=== PATIENT | male | born 1955 | race Caucasian/White ===

== ENCOUNTER → 2023-01-06 10:53 | Outpatient (CLI) | payer MEDICARE, SELFPAY ==
--- NOTE | 2023-01-06 11:16 | XR_ITS ---
FINAL REPORT CLINICAL HISTORY: HEMATURIA COMPARISON: None FINDINGS: SINGLE VIEW ABDOMEN A single view of the abdomen was obtained. There is a nonobstructive bowel gas pattern with a moderate stool burden.. There are no abnormally dilated loops of small bowel. No abnormal calcifications are identified. Lower lumbar degenerative changes present. IMPRESSION: Nonobstructive bowel gas pattern with a moderate stool burden.. Reviewed, Interpreted and Dictated by Duarte Rojas III, MD Transcribed by Fely Garcia Authenticated and [facility]
== END ==
LOC: LAB 10:57 → RAD 10:58
PROVIDERS: PCP Nurse Practitioner Family; Visit Provider Nurse Practitioner Family
DX: R31.9 Hematuria, unspecified (principal)
CPT/HCPCS: 74018

== ENCOUNTER 2023-07-23 10:21 | Outpatient (CLI) | payer MEDICARE, SELFPAY ==
[2023-07-23 17:22] LABS: Hemoglobin A1C 7.3 % (4.0-6.0)
== END 2023-07-23 23:59 | disposition home or self-care (01) ==
LOC: LAB.DROPOF 07-24 10:21
PROVIDERS: PCP Family Medicine; Visit Provider Family Medicine
DX: E11.9 Type 2 diabetes mellitus without complications (principal); Z79.84 Long term (current) use of oral hypoglycemic drugs
CPT/HCPCS: 83036

== ENCOUNTER 2024-05-13 11:05 | Outpatient (CLI) | payer MEDICARE, SELFPAY ==
[2024-05-13 18:00] LABS: Basophils % 0.4 % (0.1-2.0); Eosinophils # 0.1 K/mm3 (0.0-0.4); Eosinophils % 2.4 % (0.1-12.0); Hematocrit 45.4 % (42.0-52.0); Hemoglobin 15.1 g/dL (14.1-18.0); Lymphocytes # 1.7 K/mm3 (0.7-4.5); Lymphocytes % 31.6 % (10-50); Mean Corpuscular HGB Conc 33.3 g/dL (31.8-35.4); Mean Corpuscular Hemoglobin 31.5 pg (27.0-31.2); Mean Corpuscular Volume 94.6 fl (80-94); Mean Platelet Volume 10.1 fl (7.4-10.4); Monocytes # 0.4 K/mm3 (0.1-1.0); Monocytes % 7.3 % (1.7-9.3); Neutrophils # 3.1 K/mm3 (1.8-7.8); Neutrophils % 58.1 % (37.0-80.0); Platelet Count 176 K/mm3 (142-424); White Blood Count 5.3 K/mm3 (4.8-10.8)
[2024-05-13 18:22] LABS: Alanine Aminotransferase 30 U/L (12-78); Albumin Level 5.2 g/dl (3.5-5.0); Albumin/Globulin Ratio 2.3 (1.1-1.8); Alkaline Phosphatase 62 U/L (38-126); Anion Gap 17.9 mEq/L (5-15); Aspartate Amino Transferase 32 U/L (17-59); Blood Urea Nitrogen 19 mg/dl (9-20); Calcium 9.6 mg/dl (8.4-10.2); Carbon Dioxide 21 mmol/L (22.0-30.0); Chloride 103 mmol/L (98-107); Chol/HDL Ratio 2.1 (1-3.5); Cholesterol 125 mg/dl (140-200); Estimated Glomerular Filt Rate 96 ml/min (>60); GFR (African American) 117 ML/MIN (>60); Globulin 2.3 g/dL (1.3-3.2); Glucose 121 mg/dl (74-100); HDL Cholesterol 59 mg/dl (40-60); Potassium 4.9 mmoL/L (3.5-5.1); Sodium 137 mmol/L (136-145); Total Protein,Serum 7.5 g/dl (6.3-8.2); Triglycerides 253 mg/dl (30-150); VLDL Cholesterol 51 mg/dL (0-40)
[2024-05-13 18:34] LABS: Direct LDL Cholesterol < 30.00 mg/dL (100-129)
[2024-05-13 18:53] LABS: Prostate Specific Ag Screen 1.3 ng/ml (0.0-4.0); Thyroid Stimulating Hormone 2.61 uIU/mL (0.465-4.68)
[2024-05-13 19:45] LABS: HIV Combo NEGATIVE (Negative)
[2024-05-13 19:52] LABS: Hepatitis C Ab Qual. W/ RFX NEGATIVE (Negative)
[2024-05-15 09:24] LABS: Testosterone,Total 202 ng/dL (264-916)
== END 2024-05-13 23:59 | disposition home or self-care (01) ==
LOC: LAB.DROPOF 05-14 11:09
PROVIDERS: PCP Family Medicine; Visit Provider Family Medicine
DX: E11.9 Type 2 diabetes mellitus without complications (principal); Z79.84 Long term (current) use of oral hypoglycemic drugs; Z12.5 Encounter for screening for malignant neoplasm of prostate; Z11.59 Encounter for screening for other viral diseases; Z87.891 Personal history of nicotine dependence
CPT/HCPCS: 80053; 80061; 84403; 84443; 85025; 86803; 87389; G0103

== ENCOUNTER 2024-05-31 08:05 | Outpatient (CLI) | payer MEDICARE, SELFPAY ==
[2024-05-31 18:02] LABS: Creatinine,Urine Random 80 mg/dL (Not Estab.); Microalbumin < 6.000 mg/L (0-16.7)
[2024-06-06 19:15] LABS: Testosterone, Total, LC/MS 278.7 ng/dL (264.0-916.0)
== END 2024-05-31 23:59 | disposition home or self-care (01) ==
LOC: LAB.DROPOF 06-01 12:07
PROVIDERS: PCP Family Medicine; Visit Provider Family Medicine
DX: E11.9 Type 2 diabetes mellitus without complications (principal); R79.89 Other specified abnormal findings of blood chemistry; Z11.59 Encounter for screening for other viral diseases; Z12.5 Encounter for screening for malignant neoplasm of prostate
CPT/HCPCS: 82043; 82570; 84402; 84403

== ENCOUNTER 2024-09-21 09:05 | Outpatient (CLI) | payer MEDICARE, SELFPAY ==
[2024-09-21 17:28] LABS: Prostate Specific Ag, Diagnost 2.59 ng/ml (0.0-4.0)
[2024-09-21 19:03] LABS: Hemoglobin A1C 8.4 % (4.0-6.0)
--- OUTSIDE RECORDS SUMMARY | 2024-09-22 10:06 | XMS_ITS | Data Portability ---
Author Organization [place] - [place] [facility] P[facility] Raymond Address [address] [place] [address] Care Team Providers Care Heel Attacher Wood Name Role Phone SABA ULRICH Primary Care Provider Assessment No assessment recorded. Plan of Treatment Reminders Order Date Submit Date Provider Last Modified By Organization Details Last Modified Time Details Appointments PROC 15 2024 10:45A M Maverick Balderrama Jr, MD Not available Not available Not available Lab PSA, serum or plasma 2023 024 [facility] (Laboratory), [address] , [place], [address], 07/01/2023 18:11:35 Referral None recorded . Procedures None recorded . Surgeries None recorded . Imaging None recorded . Medication Orders None recorded . Patient TargetsNo targets recorded. Patient InstructionsNo instructions recorded. Reason for Referral None Reported. Results Created Date Observation Date Name Description Value Unit Range Abnormal Flag Note LastModifiedBy Organization Detail LastModifiedTime 07/27/19 25 07/26/2024 RFS-P ATHOL OGY SPECI MEN REQUE ST pathreq Patho logy [address] [place] [address] Phone or [phone] Fax Mert garza Jr., M.D., Medic al Direc [facility] [address] : [place] [address] Phone Numbe r: [phone] Nicholas shabazz M.D. PATHO LOGY REPOR T Patie nt Name: JAY MARTINEZ Date of : 1955 Age/S ex: 69/M Accou nt Numbe r: [id number] Medic al Recor d Numbe r: [id number] Order ing MD: JAIR BALDERRAMA AM Date Colle cted : 2024 Date Recei nan : 2024 Date Repor heidi : 2024 Exam: Biops y Acces gloria# : [id number] Labor atory #: [id number] Copie s To: [facility] Techn ician : [facility] er cance r, benig n prost atic hyper plasi a BodyS ite PROST ATE, NEEDL E CORE BIOPS Y SubSi te PAPIL JOHN LESIO N Gross Descr iptio n Speci men recei nan in forma reese label ed giselle llary prost ate lesio n and consi sts of no tissu e gross ly ident ified . Speci men is filte red and dyed with eosin in an attem pt to recov er tissu e. Speci men is submi tted in a singl e casse tte. JTM Micro scopi c Descr iptio n Revie w of prepa red slide s confi danita no tissu e, confi rming the gross descr iptio n. Final Diagn osis NO TISSU E IDENT IFIED EJT/[place] [address] Legal ly authe ntica heidi by NICHOLAS FRANKLIN MD 07-26 13:49 :00 Not Available [facility] (Pre-Op Clinic) [address] [place] [address] [place], [address], 07/26/2024 14:11:26 07/01/1907/01/2023 PROST ATE SPECI FIC AG (PSA) prostate specific Ag (PSA) 2.39 NG/mL 0.0-4. 0 Not Available [facility] (Lab Registration) [address] [place] [address] [place], [address], 07/01/2023 18:11:35 07/01/19 24 07/01/2023 PROST ATE SPECI FIC AG (PSA) note Unles s other espinosa noted testi ng perfo rmed at: [facility] [address] [place] [address] [phone] Nicholas shabazz MD CLIA: [id number] Not Available [facility] (Lab Registration) [address] [place], [address], 07/01/2023 18:11:35 07/24/19 24 07/24/2023 BASIC METAB OLIC PANEL sodium 142 mmol/ L 136-14 5 Not Available [facility] (Lab Registration) [address] [place], [address], 07/24/2023 11:49:39 07/24/19 24 07/24/2023 BASIC METAB OLIC PANEL potassium 4.3 mmol/ L 3.5-5. 1 Not Available [facility] (Lab Registration) [address] [place], [address], 07/24/2023 11:49:39 07/24/19 24 07/24/2023 BASIC METAB OLIC PANEL chloride 104 mmol/ L 98-107 Not Available [facility] (Lab Registration) [address] [place], [address], 07/24/2023 11:49:39 07/24/19 24 07/24/2023 BASIC METAB OLIC PANEL carbon dioxide 29 mmol/ L 21-32 Not Available [facility] (Lab Registration) [address] [place], [address], 07/24/2023 11:49:39 07/24/19 24 07/24/2023 BASIC METAB OLIC PANEL anion gap 9.0 Not Available [facility] (Lab Registration) [address] [place], [address], 07/24/2023 11:49:39 07/24/19 24 07/24/2023 BASIC METAB OLIC PANEL glucose 156 mg/dL 70-110 high Not Available [facility] (Lab Registration) [address], [place], [address], 07/24/2023 11:49:39 07/24/19 24 07/24/2023 BASIC METAB OLIC PANEL blood urea nitrogen 18 mg/dL 7-18 Not Available [facility] (Lab Registration) [address], [place], [address], 07/24/2023 11:49:39 07/24/19 24 07/24/2023 BASIC METAB OLIC PANEL creatinine 0.9 mg/dL 0.8-1. 3 Not Available [facility] (Lab Registration) [address], [place], [address], 07/24/2023 11:49:39 07/24/19 24 07/24/2023 BASIC METAB OLIC PANEL BUN/creatini ne ratio 20.0 ratio 9-21 Not Available [facility] (Lab Registration) [address], [place], [address], 07/24/2023 11:49:39 07/24/19 24 07/24/2023 BASIC METAB OLIC PANEL estimated glom filtration rate 89 mL/mi n >60- Not Available [facility] (Lab Registration) [address], [place], [address], 07/24/2023 11:49:39 07/24/19 24 07/24/2023 BASIC METAB OLIC PANEL calcium 9.6 mg/dL 8.5-10 .1 Not Available [facility] (Lab Registration) [address], [place], [address], 07/24/2023 11:49:39 07/24/19 24 07/24/2023 BASIC METAB OLIC PANEL note Unles s other espinosa noted testi ng perfo rmed at: [facility] [address] [place] [address] [phone] Nicholas shabazz MD CLIA: [id number] Not Available [facility] (Lab Registration) [address] [place], [address], 07/24/2023 11:49:39 07/24/19 24 07/24/2023 HEMOG LOBIN A1C glycosylated hemoglobin A1C 7.4 % 4.5-6. 2 high Not Available [facility] (Lab Registration) [address] [place], [address], 07/24/2023 12:14:12 07/24/19 24 07/24/2023 HEMOG LOBIN A1C estimated average glucose 166 mg/dL 82-131 high Not Available [facility] (Lab Registration) [address] [place], [address], 07/24/2023 12:14:12 07/24/19 24 07/24/2023 HEMOG LOBIN A1C note Unles s other espinosa noted testi ng perfo rmed at: [facility] [address] [place] [address] [phone] Nicholas shabazz MD CLIA: [id number] Not Available [facility] (Lab Registration) [address] [place], [address], 07/24/2023 12:14:12 07/21/19 25 07/20/2024 BASIC METAB OLIC PANEL sodium 139 mmol/ L 137-14 7 Not Available [facility] (Pre-Op Clinic) [address] [place] [address] [place], [address], 07/20/2024 17:49:29 07/21/19 25 07/20/2024 BASIC METAB OLIC PANEL potassium 4.0 mmol/ L 3.5-5. 1 Not Available [facility] (Pre-Op Clinic) [address] [place] [address] [place], [address], 07/20/2024 17:49:29 07/21/19 25 07/20/2024 BASIC METAB OLIC PANEL chloride 100 mmol/ L 98-110 Not Available [facility] (Pre-Op Clinic) [address] [facility] [place], [address], 07/20/2024 17:49:29 07/21/19 25 07/20/2024 BASIC METAB OLIC PANEL carbon dioxide 24 mmol/ L 21-30 Not Available [facility] (Pre-Op Clinic) [address] [place] [place], [address], 07/20/2024 17:49:29 07/21/19 25 07/20/2024 BASIC METAB OLIC PANEL anion gap 15 mmol/ L 6-14 high Not Available [facility] (Pre-Op Clinic) [address] [place], [address], 07/20/2024 17:49:29 07/21/19 25 07/20/2024 BASIC METAB OLIC PANEL glucose 108 mg/dL 70-115 Not Available [facility] (Pre-Op Clinic) [address] [place] [address] [place], [address], 07/20/2024 17:49:29 07/21/19 25 07/20/2024 BASIC METAB OLIC PANEL BUN 16 mg/dL 9-20 Not Available [facility] (Pre-Op Clinic) [address] [place] [address] [place], [address], 07/20/2024 17:49:29 07/21/19 25 07/20/2024 BASIC METAB OLIC PANEL creatinine 0.9 mg/dL 0.5-1. 5 Not Available [facility] (Pre-Op Clinic) [address] [place] [address] [place], [address], 07/20/2024 17:49:29 07/21/19 25 07/20/2024 BASIC METAB OLIC PANEL BUN/creatini ne ratio 18 10-20 Not Available [facility] (Pre-Op Clinic) [address] [place] [address] [place], [address], 07/20/2024 17:49:29 07/21/19 25 07/20/2024 BASIC METAB OLIC PANEL glom filtration rate 93 mL/mi n >60- GFR LIMIT ATION : The eGFR equat ion CKD-E PI 2020 is not appli cable for pedia tric patie nts or great er than 90 years of age. The follo wing condi tions may alter the GFR resul t: extre mes in body size, malnu triti on or obesi ty, skele aura muscl e disea se, parap legia or quadr ipleg ia, veget vitaliy diet or rapid ly hernandez ing kiney funct ion. Not Available [facility] (Pre-Op Clinic) [address] [place] [address] [place], [address], 07/20/2024 17:49:29 07/21/19 25 07/20/2024 BASIC METAB OLIC PANEL osmolality (calculated) 291 mosmo l/kg 275-30 1 OSMOL ALITY IS A CALCU LATIO N UTILI ZING THE SERUM /PLAS MA SODIU M, GLUCO SE AND UREA NITRO GEN (BUN) LEVEL S. FOR THE MOST ACCUR ATE RESUL T A MEASU RED SERUM OSMOL ALITY IS SUGGE STED. Not Available [facility] (Pre-Op Clinic) [address] [place] [address] [place], [address], 07/20/2024 17:49:29 07/21/1907/20/2024 BASIC METAB OLIC PANEL calcium 9.8 mg/dL 8.5-10 .8 Not Available [facility] (Pre-Op Clinic) [address] [place] [address] [place], [address], 07/20/2024 17:49:29 07/21/19 25 07/20/2024 BASIC METAB OLIC PANEL note Unles s other espinosa noted testi ng perfo rmed at: [facility] [address] [place] [address] Nicholas shabazz MD Not Available [facility] (Pre-Op Clinic) [address] [place] [address] [place], [address], 07/20/2024 17:49:29 07/22/19 25 07/21/2024 rhyth m strip , EKG* No observ ation record ed. [email or web address] [facility] Records [address] [place] [address] [place], [address], 08/02/2024 14:22:51 Result Notes None recorded. Problems Name Problem SNOMED Code Status Onset Date Resolution Date Notes Provider Name and Address Organization Details Recorded Time Diabetes mellitus 59525700 Active 023 Poppy aj, [place] - [facility] - [place] & [place] 3 10:23:34 Problem Notes None recorded. Procedures Surgical History Date Name Laterality Status Provider Name and Address Organization Details Recorded Time 5 Bladder Irrigation completed Maverick Balderrama Jr, MD [address], [address], [place], [address], [place] [facility] [place] & [place] 07/26/2024 11:21:55 5 Cystoscopy-Male completed Maverick Balderrama Jr, MD [address], [address], [place], [address], [place] [facility] [place] & [place] 07/01/2024 12:32:01 4 Cystoscopy-Male completed Maverick Balderrama Jr, MD [address], [address], [place], [address], [place] [facility] [place] 02/17/2024 12:52:58 4 Cystoscopy-Male completed Maverick Balderrama Jr, MD [address], [address], [place], [address], [place] [facility] [place] 10/23/2023 10:44:56 4 Cystoscopy-Male completed Maverick Balderrama Jr, MD [address], [address], [place], [address], [place] [facility] [place] 07/01/2023 11:36:25 4 Other completed Jeet Sanchez [place] [facility] [place] 07/26/2024 10:13:06 3 Cystoscopy-Male completed Maverick Balderrama Jr, MD [address], [address], [place], [address], [place] [facility] 03/04/2023 15:02:17 Imaging Results None recorded. Procedure Notes None recorded. Medical Equipment None Reported. Allergies No known drug allergies Medications Name Sig Start Date Stop Date Status Note LastModified by Organization Details LastModified Time glipizide ER 2.5 mg tablet, extended release 24 hr active Not Available Not Available Not Available simvastatin 20 mg tablet active Not Available Not Available Not Available cefdinir 300 mg capsule TAKE 1 CAPSULE BY MOUTH TWICE DAILY 10/22 completed Not Available Not Available Not Available Xigduo XR 5 mg-1,000 mg tablet,exten ded release active Not Available Not Available Not Available Vitals Date Recorded Body height Body mass index (BMI) Body weight Body temperature Provider Name and Address Organization Details Last Updated DateTime 07/01/2023 182.88 cm 25.1 kg/m2 02342.59 g 98.1 [degF] Poppy Sanon [facility] 07/01/2023 10:59:54 Date Recorded Body height Body mass index (BMI) Body weight Body temperature Provider Name and Address Organization Details Last Updated DateTime 07/01/2024 182.88 cm 25.1 kg/m2 18797.59 g 98.1 [degF] Jeet [facility] 07/01/2024 11:28:02 Date Recorded Body height Body mass index (BMI) Body weight Body temperature Provider Name and Address Organization Details Last Updated DateTime 07/26/2024 182.88 cm 25.1 kg/m2 18246.59 g 98.1 [degF] Jeet [facility] 07/26/2024 10:12:57 Date Recorded Body height Body mass index (BMI) Body weight Provider Name and Address Organization Details Last Updated DateTime 10/23/2023 182.88 cm 25.1 kg/m2 82275.59 g Stephany James [facility] 10/23/2023 09:06:33 Date Recorded Body height Body mass index (BMI) Body weight Body temperature Provider Name and Address Organization Details Last Updated DateTime 02/17/2024 182.88 cm 25.1 kg/m2 75019.59 g 98.2 [degF] Tefanie Carrillo [facility] & [place] 02/17/2024 09:56:37 Social History Question Answer Notes LastModified by Organizat ion Details LastModified Time Tobacco Smoking Status Former Smoker Jeet aj, [facility] & [place] 07/26/2024 10:13:04 Do You Have An Advance Directive? No Information not available 07/26/2024 Are You Blind Or Do You Have Difficulty Seeing? No Information not available 07/26/2024 What Was The Date Of Your Most Recent Tobacco Screening? 07/23/2024 Information not available 07/26/2024 Are You Passively Exposed To Smoke? No Information not available 07/26/2024 Sex: Male Functional Status Question Answer Note LastModified by Organizat ion Details LastModified Time Do you use any illicit or recreational drugs? No Information not available 07/26/2024 What is your level of alcohol consumption? Moderate Information not available 07/26/2024 What is your exercise level? Moderate Information not available 07/26/2024 Mental Status Question Answer Note LastModified by Organization D etails LastModified Time Do you feel stressed (tense, restless, nervous, or anxious, or unable to sleep at night)? [id number] Information not available 07/26/2024 Family History Nothing Reported Notes:both parents unknown reason Medical History Condition Response Diabetes Y Past Encounters Encounter ID Performer Location Encounter Start Date Encounter Closed Date Diagnosis/Indication Diagnosis SNOMED-CT Code Diagnosis ICD10 Code Diagnosis Note [id number] Maverick Balderrama Jr, MD [facility] [address] [address] 02/20/2023 10:05:51 02/20/2023 11:19:27 Malignant neoplasm of urinary bladder 162732994 C67.9 patient with a 2 cm bladder tumor 5 o'clock position. We discussed the need for TURBT. Raf hematuria 65785938 5 R31.0 patient with a 3 month history of intermitte nt gross hematuria. Cystoscopy today shows a 2 cm tumor noted at the 5 o'clock position. It is papillary in nature. We discussed the findings and TURBT was recommende d. We discussed the operative procedure, complicati ons and postoperat norberto course. He wishes to proceed. We will set this up under general anesthetic at his earliest convenienc e. [id number] Maverick Balderrama Jr, MD [facility] [address] [address] 07/01/2023 10:54:46 07/01/2023 11:31:23 History of malignant neoplasm of bladder 280781532 Z85.51 patient with history of bladder cancer status post TURBT of a 2 cm tumor to 5 o'clock position in the left lateral wall in February. His pathology was noninvasiv e and he returns today in follow-up. Surveillan ce cystoscopy today revealed a small 5 mm papillary recurrence right side of the bladder neck impinging upon the prostate. We discussed the findings and resection of the lesion morgane d. Set this up at his earliest convenienc e. Benign pro static hyperplasia without outflow obstruction 079784624 N40.0 patient with prostate enlargemen t but no significan t symptoms. [id number] [facility]err[facility] [address] [address] 10/23/2023 09:05:23 10/23/2023 09:56:45 History of malignant neoplasm of bladder 840239514 Z85.51 patient with history of bladder cancer status post TURBT of a 2 cm tumor to 5 o'clock position in the left lateral wall in February and a small recurrence in the right side the bladder neck in June. He underwent resection in July and returns today for surveillan ce cystoscopy . Today's cystoscopy is within normal limits and patient reassured. We will see him back in 4 months with surveillan ce cystoscopy . Benign pro static hyperplasia without outflow obstruction 417039950 N40.0 patient with prostate enlargemen t but no significan t symptoms. Screening for malignant neoplasm of prostate 918911180 Z12.5 patient's PSA was 2.10 June 2023 and he was reassured that it was within normal limits. [id number] Maverick Balderrama Jr, MD [facility] [address] [address] 02/17/2024 09:47:26 02/17/2024 10:35:39 History of malignant neoplasm of bladder 948075803 Z85.51 patient with history of bladder cancer status post TURBT of a 2 cm tumor to 5 o'clock position in the left lateral wall in February and a small recurrence in the right side the bladder neck in June. He underwent resection in July and returns today for surveillan ce cystoscopy . Today's cystoscopy is within normal limits and patient reassured. We will see him back in 4 months with surveillan ce cystoscopy . Benign pro static hyperplasia without outflow obstruction 699586404 N40.0 patient with prostate enlargemen t but no significan t symptoms. Screening for malignant neoplasm of prostate 330630007 Z12.5 patient's PSA was 2.10 June 2023 and he was reassured that it was within normal limits. [id number] Maverick Balderrama Jr, MD [facility] [address] [address] 07/01/2024 11:07:47 07/01/2024 11:43:54 History of malignant neoplasm 197085259 Z85.51 patient with history of bladder cancer status post TURBT of a 2 cm tumor to 5 o'clock position in the left lateral wall in February 2023 and a small recurrence in the right side the bladder neck in June 2023. He underwent resection in July and returns today for surveillan ce cystoscopy . Cystoscopy today showed no evidence of bladder tumors but there was a papillary lesion in the distal aspect of the prostatic urethra. We discussed the findings and we will set him up for resection lesion. Benign pro static hyperplasia without outflow obstruction 663118710 N40.0 patient with prostate enlargemen t but no significan t symptoms. Screening for malignant neoplasm of prostate 250962588 Z12.5 patient's PSA was 2.10 June 2023 and he was reassured that it was within normal limits. Patient is due for repeat PSA. I did not order 1 today we will correct that. [id number] Maverick Balderrama Jr, MD [facility] [address] [place] [address] 07/26/2024 10:11:26 07/26/2024 10:50:07 History of malignant neoplasm 319977086 Z85.51 patient with history of bladder cancer status post TURBT of a 2 cm tumor to 5 o'clock position in the left lateral wall in February 2023 and a small recurrence in the right side the bladder neck in June 2023. He underwent resection in July and returns today for surveillan ce cystoscopy . Cystoscopy today showed no evidence of bladder tumors but there was a papillary lesion in the distal aspect of the prostatic urethra. repeat cystoscopy in 4 months. Mass of urethra 52422287 01 01209 N36.8 recent cystoscopy showed a papillary lesion in the distal aspect of the prostatic urethra. Patient underwent resection of this lesion on July 22. Fontenot catheter was left indwelling after procedure and patient returns today for a voiding trial. His bladder was filled he was able to void adequately . We discussed that pathology was to desiccated to identify any significan t elements. We discussed that this was likely a seating of the prostatic urethra from his history of bladder cancer. We discussed that all the lesion was resected at the time and we will continue monitoring . Health Concerns Section Related Observation LastModified by Organization Detai ls LastModified Time None Recorded Concern Status LastModified by Organization Details LastModified Time None Recorded Advance Directives Directive N: Payers Insurance Date Sequence Insurance Name Policy Number Policy Ospina Covered Member ID Ospina Member ID Guarantor Name 02/20/2023 1 [employer] (MEDICARE) Cesario Squires [id number] Cesario A Squires 07/25/2024 1 [facility] (MEDICARE REPLACEMENT/A DVANTAGE - PPO) [id number] Cesario A Squires [id number] Cesario A Squires Notes Date Note Type Note Provider Name and Address Organization Details Recorded Time 07/01/2023 text/html Patient is a 68-year-old white male with a history of gross hematuria last year. Cystoscopy was performed in February 2023 showing a 2 cm tumor over the left lateral wall. He then underwent TURBT at [facility]. His pathology showed a low-grade noninvasive papillary urothelial carcinoma. Patient returns today in routine follow-up. He denies any recurrence of gross hematuria. Maverick Balderrama Jr, MD [address] [place] [address], [address], [place], [address], [facility] - [place] & [place] 07/01/2023 12:16:20 10/23/2023 text/html Patient is a 68-year-old white male with history of bladder cancer. Bladder cancer originally diagnosed in February 2023. He underwent a TURBT of a 2 cm tumor at that time which showed a low-grade noninvasive papillary urothelial carcinoma. Cystoscopy in June showed a small recurrence at the right side of the bladder neck for which he underwent resection. He returns today for surveillance cystoscopy. He denies any recurrent hematuria. Maverick Balderrama Jr, MD [address] [place] [address], [address], [address], [facility] [place] 10/23/2023 10:46:52 02/17/2024 text/html patient is a 68-year-old white male with history of bladder cancer. Bladder cancer was recently diagnosed in February 2023. He underwent a TURBT of a 2 cm tumor at that time which showed a low-grade noninvasive papillary urothelial carcinoma. Surveillance cystoscopy in June 2023 showed a small recurrence on the right side of the bladder neck for which he underwent resection. Surveillance cystoscopy in October was negative and he returns today for surveillance. He denies any gross hematuria. States he is voiding without difficulty. Maverick Balderrama Jr, MD [address] [place] [address], [address], [address], [facility] [place] 02/17/2024 12:54:46 07/01/2024 text/html Patient is a 69-year-old white male with history of bladder cancer and BPH. He returns today for three-month surveillance cystoscopy. Denies any voiding difficulties or hematuria. His initial tumor was noted in February 2023. It was low-grade and noninvasive. Surveillance cystoscopy in June 2023 showed a small recurrence on the right side for which he underwent resection. He returns today for routine surveillance cystoscopy.Patient denies any lower urinary tract symptoms. Maverick Balderrama Jr, MD [address] [place] [address], [address], [place], [address], [place] [facility] & [place] 07/01/2024 12:35:02 07/26/2024 text/html patient is a 69-year-old white male with history of bladder cancer recently found to have papillary lesion in his distal urethral prostate. Patient underwent trans urethral resection of the prostatic lesion on July 22. Discharged home with his Fontenot catheter returns today for a voiding trial. The pathology report unfortunately showed that the material was too desiccated to identify any substantial pathology. Maverick Balderrama Jr, MD [address] [place] [address], [address], [place], [address], [place] [facility] - [place] & [place] 07/26/2024 11:25:01
--- OUTSIDE RECORDS SUMMARY | 2024-09-22 10:06 | XMS_ITS | Clinical Summary ---
Author Organization Healthcare Address [address] [place] [address] Care Team Providers Care Preforms Laminator Name Role Phone Randall Mascorro MD Primary Care Provider [phone] Immunizations Immunization Administration Dates Next Due Influenza, injectable, quadrivalent, preservativ e free 12/24/2020 [employer] COVID-19 Vaccine (Purple Cap) 12 + 03/22/2020 Family History Medical History Relation Name Comments Macular degeneration Father Relation Name Status Comments Father Social History Tobacco Use Types Packs/Day Years Used Date Smoking Tobacco: Former Sex and Gender Information Value Date Recorded Sex Assigned at Not on file Legal Sex Male 7:36 PM EDT Gender Identity Not on file Sexual Orientation Not on file Plan of Treatment Not on file Care Teams Preforms Laminator Relationship Specialty Start Date End Date Randall [place] [place] [address] PCP - General 07/20/20
--- OUTSIDE RECORDS SUMMARY | 2024-09-22 10:06 | XMS_ITS | Continuity of Care Document ---
Author Organization [facility] Address [address] [place] [address] Care Team Providers Care Decator Operator Name Role Phone SABA ULRICH Primary Care Provider [phone] Assessment No assessment recorded. Plan of Treatment Reminders Order Date Submit Date Provider Last Modified By Organization Details Last Modified Time Details Appointments PROC 025 10:45AM Maverick Balderrama Jr, MD Not available Not available Not available Lab None record ed. Referral None record ed. Procedures None record ed. Surgeries None record ed. Imaging None record ed. Medication Orders None record ed. Patient TargetsNo targets recorded. Patient InstructionsNo instructions recorded. Reason for Referral None Reported. Results Created Date Observation Date Name Description Value Unit Range Abnormal Flag Note LastModifiedBy Organization Detail LastModifiedTime 07/22/19 25 07/21/2024 rhyth m strip , EKG* No observ ation record ed. [email or web address] [facility] Medical Records [address] [place] [address], [place], [address], 08/02/2024 14:22:51 Result Notes None recorded. Problems Name Problem SNOMED Code Status Onset Date Resolution Date Notes Provider Name and Address Organization Details Recorded Time Diabetes mellitus 13306640 Active 023 Poppy aj, [facility] & [place] 3 10:23:34 Problem Notes None recorded. Procedures Surgical History Date Name Laterality Status Provider Name and Address Organization Details Recorded Time 5 Bladder Irrigation completed Maverick Balderrama Jr, MD [address] [place] [address], [address], [place], [address], [facility] & [place] 07/26/2024 11:21:55 5 Cystoscopy-Male completed Maverick Balderrama Jr, MD [address], [address], [place], [address], [place] [facility] - [place] & [place] 07/01/2024 12:32:01 4 Cystoscopy-Male completed Maverick Balderrama Jr, MD [address], [address], [place], [address], [place] [facility] - [place] & [place] 02/17/2024 12:52:58 4 Cystoscopy-Male completed Maverick Balderrama Jr, MD [address], [address], [place], [address], [place] [facility] [place] & [place] 10/23/2023 10:44:56 4 Cystoscopy-Male completed Maverick Balderrama Jr, MD [address], [address], [place], [address], [place] [facility] - [place] & [place] 07/01/2023 11:36:25 4 Other completed Jeet Sanchez [place] [facility] - [place] & [place] 07/26/2024 10:13:06 3 Cystoscopy-Male completed Maverick Balderrama Jr, MD [address], [address], [place], [address], [place] [facility] [place] & [place] 03/04/2023 15:02:17 Imaging Results None recorded. Procedure [...] Updated DateTime 07/26/2024 182.88 cm 25.1 kg/m2 22038.59 g 98.1 [degF] Jeet LUJAN [facility] & [place] 07/26/2024 10:12:57 Social History Question Answer Notes LastModified by Organizat ion Details LastModified Time Tobacco Smoking Status Former Smoker Jeet aj, MARCEL LUJAN [facility] & [place] 07/26/2024 10:13:04 Do You Have An Advance [...] anxious, or unable to sleep at night)? [id number] Information not available 07/26/2024 Family History Nothing Reported Notes:both parents unknown reason Medical History Condition Response Diabetes Y Past Encounters Encounter ID Performer Location Encounter Start Date Encounter Closed Date Diagnosis/Indication Diagnosis SNOMED-CT Code Diagnosis ICD10 Code Diagnosis Note [id number] Maverick Balderrama Jr, MD [facility] [address] [address] 07/01/2024 11:07:47 07/01/2024 11:43:54 History of malignant neoplasm 794024002 Z85.51 patient with history of bladder cancer [...] Benign pro static hyperplasia without outflow obstruction 343646718 N40.0 patient with prostate enlargemen t but no significan t symptoms. Screening for malignant neoplasm of prostate 518849404 Z12.5 patient's PSA was 2.10 June 2023 and he was reassured that it was within normal limits. Patient is due for repeat PSA. I did not order 1 today we will correct that. [id number] Maverick Balderrama Jr, MD [facility] [address] [place] [address] 07/26/2024 10:11:26 07/26/2024 10:50:07 History of malignant neoplasm 504837582 Z85.51 patient with history of bladder cancer [...] cystoscopy in 4 months. Mass of urethra 24993411 01 82000 N36.8 recent cystoscopy showed a papillary lesion [...] by Organization Details LastModified Time None Recorded Payers Encounter Date Sequence Insurance Name Policy Number Policy Ospina Covered Member ID Ospina Member ID Guarantor Name 07/26/2024 1 [facility] (MEDICARE REPLACEMENT/A DVANTAGE - PPO) [id number] Cesario A Squires [id number] Cesario A Squires Notes Date Note Type Note Provider Name and Address Organization Details Recorded Time 07/26/2024 text/html patient is a 69-year-old white [...] any substantial pathology. Maverick Balderrama Jr, MD [address] [place] [address], [address], [place], [address], [facility] - [place] - [place] & [place] 07/26/2024 11:25:01
== END 2024-09-21 23:59 | disposition home or self-care (01) ==
LOC: LAB.DROPOF 09-22 10:02
PROVIDERS: PCP Family Medicine; Visit Provider Family Medicine
DX: D30.3 Benign neoplasm of bladder (principal); R79.89 Other specified abnormal findings of blood chemistry; E11.9 Type 2 diabetes mellitus without complications
CPT/HCPCS: 83036; 84153; 84403

== ENCOUNTER 2024-10-11 17:39 | Outpatient (CLI) | payer MEDICARE, SELFPAY ==
--- OUTSIDE RECORDS SUMMARY | 2024-10-11 17:43 | XMS_ITS | Clinical Summary ---
[facility] Organization [facility] Address [address] [place] [address] Care Team Providers Care Sample Supervisor Name Role Phone Provider, No Known Primary Care Provider Unavail able Social History Tobacco Use Types Packs/Day Years Used Date Smoking Tobacco: Never Assessed Abuse Screen Answer Date Recorded Unsafe at Home or Work/School Not on file Feels Threatened by Someone? Not on file 11/2022 Does Anyone Keep You from Co ntacting Others or Doint Things Outside the Home? Not on file 12/15/2022 Physical Sign of Abuse Present Not on file 1 Housing Stability Answer Date Recorded Current Living Arrangements Not on file 11/2022 Potentially Unsafe Housing Conditions Not on cain e 12/15/2022 Family and Community Support Answer Roddy e Recorded Help with Day-to-Day Activities Not on file 12/15/2022 Lonely or Isolated Not on file 12/15/2022 Employment Answer Date Recorded Do you want help finding or keeping work or a lana b? Not on file 12/15/2022 Disabilities Answer Date Recorded Concentrating, Remembering, or Making Decisions Difficulty Not on file 12/15/2022 Doing Errands Independently Difficulty Not on fi le 12/15/2022 Education Answer Date Recorded Help with school or training? Not on file Preferred Language Not on file 12/15/2022 Sex and Gender Information Value Date Recorded Sex Assigned at Not on file Legal Sex Male 11:15 AM EDT Gender Identity Not on file Sexual Orientation Not on file Plan of Treatment Health Maintenance Due Date Last Done Comments TDAP/TD VACCINES (1 - Tdap) 05/19/1975 COLOGUARD 2001 COLON CANCER SCREENING 5 YEAR SIGMOIDOSCOPY 2001 COLONOSCOPY 2001 [address] CANCER SCREENING 2001 CT COLONOGRAPHY 2001 FECAL OCCULT BLOOD TEST 2001 FIT Testing (1 year) 2001 Pneumococcal Vaccine 50+ (1 of 1 - PCV) 2006 ZOSTER VACCINE (1 of 2) 2006 AAA SCREEN ONCE 2021 COVID-19 Vaccine ( - 2023- season) 2023 ANNUAL PHYSICAL 06/13/2024 HEPATITIS C SCREENING 06/13/2024 INFLUENZA VACCINE 12/07/2024 Care Teams Sample Supervisor Relationship Specialty Start Date End Date Provider, No Known [facility] [place] [address] PCP - General 05/16/15
--- OUTSIDE RECORDS SUMMARY | 2024-10-11 17:43 | XMS_ITS | Clinical Summary ---
Author Organization Healthcare Address [address] [place] [address] Care Team Providers Care Medical Front Desk Coordinator Name Role Phone Randall Mascorro MD Primary Care Provider [phone] Immunizations Immunization Administration Dates Next Due Influenza, injectable, quadrivalent, preservativ e free 12/24/2020 [employer] COVID-19 Vaccine (Purple Cap) 12 + 03/22/2020 [...] of Treatment Not on file Care Teams Medical Front Desk Coordinator Relationship Specialty Start Date End Date Randall Mascorro [place] [place] [address] PCP - General 07/20/20
--- OUTSIDE RECORDS SUMMARY | 2024-10-11 17:43 | XMS_ITS ---
Laboratory report Created on: October 01, 2024 THOMPSON EDUAR : 1955 Sex: Male Author Organization Unknown PROBLEMS Problems List Code Description RESULTS Laboratory Orders Date Order Code Test 2024-09-21 207135 TESTOSTERONE, TO LILIA, LC/MS Laboratory Results Date LOINC Test Value Unit Reference Range Interpre tation 2024-09-21 2986-8 TESTOSTERONE, TO LILIA, LC/MS 222 NG/DL L
== END 2024-10-11 23:59 | disposition home or self-care (01) ==
LOC: LAB.DROPOF 17:42
PROVIDERS: PCP Nurse Practitioner Family; Visit Provider Nurse Practitioner Family
DX: R79.89 Other specified abnormal findings of blood chemistry (principal)
CPT/HCPCS: 84402; 84403